=== PATIENT | male | born 1960 | race Hispanic/Latino ===

== ENCOUNTER 2017-08-01 16:10 | Emergency (ER) | payer BC, MEDICAID ==
[2017-08-01 16:10] VITALS: BMI 25.1
[2017-08-01 16:44] VITALS: BP 122/79; PULSE 72; RESP 18; TEMP 98; O2SAT 95
[2017-08-01] MEDS ORDERED: Sodium Chloride 0.9% 1,000 ML IV STA (17:18)
--- NOTE | 2017-08-01 17:22 | ED PDOC ---
Arrival/HPI - General Chief Complaint: GI Problem Time Seen by Provider: 08/01/17 17:11 Historian: Patient, Other (Friend) - History of Present Illness Time/Duration: Other (1 day) Symptom Onset: Gradual Symptom Course: Improving Quality: Cramping Severity Level: Moderate Activities at Onset: Rest Associated Symptoms (Text): 08/01/17 17:20 Patient reports that yesterday he developed intermittent crampy abdominal pain with some nausea. No vomiting. Severe watery diarrhea with the cramps. No travel or exposure. No fever or chills. No genitourinary symptoms. HIV positive. Past Medical History - Infectious Disease Hx of Infectious Diseases: None - Psychiatric Hx Substance Use: Yes Other/Comment: Crystal meth & Marijuana use - Anesthesia Hx Anesthesia: No Hx Anesthesia Reactions: No Hx Malignant Hyperthermia: No Family/Social History - Physician Review Nursing Documentation Reviewed: Yes Family/Social History: Unknown Family HX Smoking Status: Never Smoked Hx Alcohol Use: Yes Frequency of alcohol use: Socially Hx Substance Use: Yes Substance used: Crystal meth & Marijuana Allergies/Home Meds Allergies/Adverse Reactions: Allergies No Known Allergies Allergy (Verified 08/01/17 16:34) Review of Systems - Physician Review All systems were reviewed & negative as marked: Yes - Review of Systems Constitutional: Fatigue. absent: Fevers Respiratory: Normal. absent: SOB, Cough, Wheezing Cardiovascular: Normal. absent: Chest Pain, Palpitations, Syncope Gastrointestinal: Abdominal Pain, Nausea, Anorexia. absent: Constipation, Diarrhea, Vomiting Genitourinary Male: absent: Dysuria, Frequency, Hematuria Neurological: absent: Headache, Dizziness, Focal Weakness Physical Exam Vital Signs Temp Pulse Resp BP Pulse Ox 08/01/17 16:30 98 F 72 18 122/79 95 Temperature: Afebrile Blood Pressure: Normal Pulse: Regular Respiratory Rate: Normal Appearance: Positive for: Well-Appearing, Non-Toxic, Uncomfortable Pain Distress: None Mental Status: Positive for: Alert and Oriented X 3 - Systems Exam Head: Present: Atraumatic, Normocephalic Pupils: Present: PERRL Extroacular Muscles: Present: EOMI Conjunctiva: Present: Normal Ears: Present: NORMAL TM, Normal Canal. No: Erythema Mouth: Present: Moist Mucous Membranes Pharnyx: No: ERYTHEMA, EXUDATE, TONSILS ENLARGED Neck: Present: Normal Range of Motion Respiratory/Chest: Present: Clear to Auscultation, Good Air Exchange, Decreased Breath Sounds. No: Respiratory Distress, Accessory Muscle Use Cardiovascular: Present: Regular Rate and Rhythm, Normal S1, S2. No: Murmurs Abdomen: Present: Normal Bowel Sounds. No: Tenderness, Distention, Peritoneal Signs, Rebound, Guarding Upper Extremity: Present: Normal Inspection. No: Cyanosis, Edema Lower Extremity: Present: Normal Inspection. No: Edema Neurological: Present: GCS=15, CN II-XII Intact, Speech Normal, Motor Func Grossly Intact Skin: Present: Warm, Dry, Normal Color. No: Rashes Psychiatric: Present: Alert, Oriented x 3, Normal Insight, Normal Concentration Medical Decision Making ED Course and Treatment: 08/01/17 18:18 Symptoms have improved. Blood work is unrevealing. Discharged home accompanied by friend to follow-up with PMD. Follow up in ER as needed. Clear liquids for 24 hours. - Lab Interpretations Lab Results: 08/01/17 17:29 08/01/17 17:29 Lab Results 08/01/17 17:29: Sodium 136, Potassium 3.8, Chloride 105, Carbon Dioxide 23, Anion Gap 12, BUN 16, Creatinine 0.8, Est GFR ( Amer) > 60, Est GFR (Non- Af Amer) > 60, Random Glucose 100, Calcium 9.1, Total Bilirubin 0.8, AST 73 H, ALT 67 H, Alkaline Phosphatase 53, Total Protein 7.1, Albumin 3.9, Globulin 3.2 , Albumin/Globulin Ratio 1.2, Lipase 101 08/01/17 17:29: WBC 6.3 D, RBC 5.46, Hgb 17.0, Hct 50.2, MCV 91.9, MCH 31.1, MCHC 33.9, RDW 14.2, Plt Count 146, MPV 10.2, Gran % 80.9 H, Lymph % (Auto) 8.7 L, [place] % (Auto) 9.7 H, Eos % (Auto) 0.5 L, Baso % (Auto) 0.2, Gran # 5.12, Lymph # 0.6 L, [place] # 0.6, Eos # 0.0, Baso # 0.01 - Medication Orders Current Medication Orders: Discontinued Medications Sodium Chloride (Sodium Chloride 0.9%) 1,000 mls @ 1,000 mls/hr IV .Q1H STA Stop: 08/01/17 18:17 Last Admin: 08/01/17 17:51 Dose: 1,000 mls/hr eMAR Start Stop Document 08/01/17 17:51 SE (Rec: 08/01/17 17:51 SE [id number]) Intravenous Solution Start Date 08/01/17 Start Time 17:51 Ondansetron HCl (Zofran Inj) 4 mg IVP STAT STA Stop: 08/01/17 17:19 Last Admin: 08/01/17 17:54 Dose: 4 mg IVP Administration Document 08/01/17 17:54 SE (Rec: 08/01/17 17:55 SE [id number]) Charges for Administration # of IVP Administrations 1 Disposition/Present on Arrival - Present on Arrival Any Indicators Present on Arrival: No History of DVT/PE: No History of Uncontrolled Diabetes: No Urinary Catheter: No History of Decub. Ulcer: No History Surgical Site Infection Following: None - Disposition Have Diagnosis and Disposition been Completed?: Yes Diagnosis: Gastroenteritis, Diarrhea, Abdominal pain, Nausea Disposition: HOME/ ROUTINE Disposition Time: 18:19 Patient Plan: Discharge Condition: IMPROVED Discharge Instructions (ExitCare): Gastroenteritis (ED), Acute Diarrhea (ED), Abdominal Pain (ED) Additional Instructions: Clear liquids for 24 hours. Follow-up with PMD. Follow up in ER as needed. Prescriptions: Ondansetron [Zofran Odt] 4 mg SL Q6 #20 odt Forms: [employer] (Armenian), WORK NOTE
[2017-08-01 17:50] LABS: BASO # 0.01 K/mm3 (0.0-2.0); BASO % 0.2 % (0.0-3.0); EOS % 0.5 % (1.5-5.0); GRAN # 5.12 (1.4-6.5); GRAN % 80.9 % (50.0-68.0); HEMATOCRIT 50.2 % (42.0-52.0); LYMPH # 0.6 (1.2-3.4); LYMPH % 8.7 % (22.0-35.0); MEAN CELL VOLUME 91.9 fl (80.0-105.0); MEAN CORPUSCULAR HEMOGLOBIN 31.1 pg (25.0-35.0); MEAN CORPUSCULAR HGB CONC 33.9 g/dl (31.0-37.0); MEAN PLATELET VOLUME 10.2 fl (7.0-11.0); MONO # 0.6 (0.1-0.6); MONO % 9.7 % (1.0-6.0); RED CELL DISTRIBUTION WIDTH 14.2 % (11.5-14.5); WHITE BLOOD COUNT 6.3 10^3/ul (4.5-11.0)
[2017-08-01 17:59] LABS: ALB/GLOB RATIO 1.2 (1.1-1.8); ALKALINE PHOSPHATASE 53 U/L (38-126); ALT/SGPT 67 U/L (7-56); AST/SGOT 73 U/L (17-59); BILIRUBIN,TOTAL 0.8 mg/dL (0.2-1.3); BLOOD UREA NITROGEN 16 mg/dL (7-21); CALCIUM 9.1 mg/dL (8.4-10.5); CARBON DIOXIDE 23 mmol/L (21-33); CHLORIDE 105 mmol/L (98-107); GFR AFRICAN-AMERICAN > 60; GLUCOSE,RANDOM 100 mg/dL (70-110); LIPASE 101 U/L (23-300); POTASSIUM 3.8 mmol/L (3.6-5.0); SODIUM 136 mmol/L (132-148); TOTAL PROTEIN 7.1 g/dL (5.8-8.3)
== END 2017-08-01 19:20 | disposition home or self-care (01) ==
LOC: ED 16:10
DX: K52.9 Noninfective gastroenteritis and colitis, unspecified (principal); Z21 Asymptomatic human immunodeficiency virus [HIV] infection status; R10.9 Unspecified abdominal pain
CPT/HCPCS: 80053; 83690; 85025; 96374; 99284; J2405; J7040